=== PATIENT | female | born 1940 | race Caucasian/White ===

== ENCOUNTER 2018-06-03 22:03 | Emergency (ER) | payer OTHER ==
[2018-06-03 22:18] VITALS: BP 115/84; PULSE 68; TEMP 98.2; BMI 26.6
--- NOTE | 2018-06-04 01:26 | PDOC ---
History of Present Illness - General Chief Complaint: Injury Stated Complaint: FALL Time Seen by Provider: 06/03/18 23:23 History Source: Patient Exam Limitations: No Limitations - History of Present Illness Initial Comments: 06/04/18 01:20 Best Contact: PCP: Pmhx: Depression Pshx: Total abdominal hysterectomy, cervical and lumbar discectomy, left knee replacement Allergies:Amlodipine/Benazeoril FH:0 Social Hx: Cigarettes/0 Alcohol/ 0 Drugs/0 LMP:N/A 77-year-old female presents to the emergency department complaining of pain to the frontal scalp. Patient states she had 2 glasses of wine this evening with dinner and when she was walking out of the restaurant, she stepped in a pothole causing her to lose balance and fall forward. Patient denies LOC, dizziness, lightheadedness, facial pains, neck pain/stiffness, back pains, chest pain, shortness of breath, flank pains, abdominal pains, urinary symptoms, bladder or bowel dysfunction, extremity numbness or tingling sensation. Pt states she takes aspirin 81 mg daily Occurred: reports: just prior to arrival Past History - Past Medical History Allergies/Adverse Reactions: Allergies Allergy/AdvReac Type Severity Reaction Status Date / Time amlodipine [From Lotrel] Allergy Verified 06/03/18 22:18 benazepril [From Lotrel] Allergy Verified 06/03/18 22:18 COPD: No GI Disorders: Yes HTN: Yes Psychiatric Problems: Yes (DEPRESSION) - Surgical History Abdominal Surgery: Yes (HYSTERECTOMY) - Suicide/Smoking/Psychosocial Hx Smoking History: Never smoked Review of Systems - Review of Systems Able to Perform ROS?: Yes Comments:: 06/04/18 01:19 CONSTITUTIONAL: Absent: fever, chills, diaphoresis, generalized weakness, malaise, loss of appetite HEENT: Absent: rhinorrhea, nasal congestion, throat pain, throat swelling, difficulty swallowing, mouth swelling, ear pain, eye pain, visual Changes CARDIOVASCULAR: Absent: chest pain, loss of consciousness, palpitations, irregular heart rate, peripheral edema RESPIRATORY: Absent: cough, shortness of breath, dyspnea with exertion, orthopnea, wheezing, stridor, hemoptysis GASTROINTESTINAL: Absent: abdominal pain, abdominal distension, nausea, vomiting, diarrhea, constipation, melena, hematochezia GENITOURINARY: Absent: dysuria, frequency, urgency, hesitancy, hematuria, flank pain, genital pain MUSCULOSKELETAL: Absent: myalgia, arthralgia, joint swelling SKIN: Absent: rash, itching, pallor HEMATOLOGIC/IMMUNOLOGIC: Absent: easy bleeding, easy bruising, lymphadenopathy, frequent infections ENDOCRINE: Absent: unexplained weight gain, unexplained weight loss, heat intolerance, cold intolerance NEUROLOGIC: +Pain to frontal forehead/abrasion Absent: headache, focal weakness or paresthesias, dizziness, unsteady gait, seizure, mental status changes, bladder or bowel incontinence PSYCHIATRIC: Absent: anxiety, depression, suicidal or homicidal ideation, hallucinations. Is the patient limited Zambian proficient: No *Physical Exam - Vital Signs Last Vital Signs Temp Pulse Resp BP Pulse Ox 98.2 F 68 18 115/84 97 06/03/18 22:13 06/03/18 22:13 06/03/18 22:13 06/03/18 22:13 06/03/18 22:13 - Physical Exam Comments: 06/04/18 01:20 GENERAL: Well developed, well nourished. Awake and alert. No acute distress. HEENT: Normocephalic, atraumatic. PERRLA, EOMI. No conjunctival pallor. Sclera are non- icteric. Moist mucous membranes. Oropharynx is clear. NECK: Supple. Full ROM. No JVD. Carotid pulses 2+ and symmetric, without bruits. No thyromegaly. No lymphadenopathy. CARDIOVASCULAR: Regular rate and rhythm. No murmurs, rubs, or gallops. Distal pulses are 2+ and symmetric. PULMONARY: No evidence of respiratory distress. Lungs clear to auscultation bilaterally. No wheezing, rales or rhonchi. ABDOMINAL: Soft. Non-tender. Non-distended. No rebound or guarding. No organomegaly. Normoactive bowel sounds. MUSCULOSKELETAL Normal range of motion at all joints. No bony deformities or tenderness. No CVA tenderness. EXTREMITIES: No cyanosis. No clubbing. No edema. No calf tenderness. SKIN: Warm and dry. Normal capillary refill. No rashes. No jaundice. NEUROLOGICAL: +forehead swelling 2x2cm/ abrasion Alert, awake, appropriate. Cranial nerves 2-12 intact. No deficits to light touch and temperature in face, upper extremities and lower extremities. No motor deficits in the in face, upper extremities and lower extremities. Normoreflexic in the upper and lower extremities. Normal speech. Toes are down- going bilaterally. Gait is normal without ataxia. PSYCHIATRIC: Cooperative. Good eye contact. Appropriate mood and affect. ED Treatment Course - RADIOLOGY Radiology Studies Ordered: Category Date Time Status CERVICAL SPINE CT W/O CONTR [CT] Stat CT Scan 06/04/18 01:[address] WITHOUT CONTRAST [CT] Stat CT Scan 06/04/18 01:00 Taken Progress Note - Progress Note Progress Note: CT cervical spine without contrast: Status post fusion of C3-C6. Hardware appears appropriately position and intact. Diffuse central canal narrowing is noted. There is no fracture, subluxation, prevertebral soft tissue swelling or significant degenerative changes. The lung apices are clear. No fracture. CT head without contrast: Scalp edema without skull fracture or intracranial hemorrhage. 0140hrs: Patient advised to stay in the emergency department for the next 6 hours for observation and repeat CAT scan of the head without contrast at 6 AM which will be 8 hours after her fall. Patient adamantly refuses. Patient states she will follow with her PMD and return back to the ER if needed *DC/Admit/Observation/Transfer Diagnosis at time of Disposition: Closed head injury Qualifiers: Encounter type: initial encounter Qualified Code(s): S09.90XA - Unspecified injury of head, initial encounter - Discharge Dispostion Disposition: AGAINST MEDICAL ADVICE Condition at time of disposition: Stable Decision to Admit order: No - Referrals Referrals: Denia Harp [Primary Care Provider] - - Patient Instructions Printed Discharge Instructions: DI for Closed Head Injury Additional Instructions: Ice your forehead 10 minutes on alternating with 10 minutes off for the next 48 hours while awake Take Tylenol as needed for pain Follow-up with your PMD within 48 hours Return back to the ER for severe/persistent or worsening symptoms, dizziness or lightheadedness/headache You were advised to stay in the emergency department for reevaluation in 2 hours and a repeat CAT scan at 6 AM but you adamantly refused and insists on being discharged AGAINST MEDICAL ADVICE. Please follow-up with your physician or return back to the ER for any concerns - Post Discharge Activity
== END 2018-06-04 01:51 | disposition left against medical advice (07) ==
LOC: JER 22:03
DX: S09.90XA Unspecified injury of head, initial encounter (principal); W18.39XA Other fall on same level, initial encounter; Y93.89 Activity, other specified; Y92.511 Restaurant or cafe as the place of occurrence of the external cause; I10 Essential (primary) hypertension
CPT/HCPCS: 70450-TC; 72125-TC; 99281-25

== ENCOUNTER 2018-06-05 12:32 | Emergency (ER) | payer OTHER ==
[2018-06-05 12:42] VITALS: BP 142/82; PULSE 68; TEMP 98.4; BMI 12.0
--- NOTE | 2018-06-05 14:10 | PDOC ---
History of Present Illness - General Chief Complaint: Injury Stated Complaint: REVISIT,HEAD INJURY Time Seen by Provider: 06/05/18 13:55 History Source: Patient Exam Limitations: No Limitations - History of Present Illness Initial Comments: 06/05/18 15:26 She was seen here 2 days ago status post trip and fall with LOC. Was discharged after negative CAT scan for facial fractures or interpret cranial pathology. But states came back today because "I just I'll feel right". Patient denies headache although has chronic neuralgia. Pain with wraparound scalp pain that is seeing a pain management doctor for. Denies worsening neck pain although has chronic neck pain due to an old cervical fusion from an injury many many years ago. Denies fever, earache, sore throat pain. Denies any neurologic changes, numbness or tingling to hands or feet,, denies any visual changes. Occurred: reports: just prior to arrival Severity: reports: mild Pain Location: reports: none, face, head Loss of Consciousness: brief (seconds) (2 days ago) Associated Symptoms (Fall): headache Past History - Travel Traveled outside of the country in the last 30 days: No Close contact w/someone who was outside of country & ill: No - Past Medical History Allergies/Adverse Reactions: Allergies Allergy/AdvReac Type Severity Reaction Status Date / Time amlodipine [From Lotrel] Allergy Verified 06/03/18 22:18 benazepril [From Lotrel] Allergy Verified 06/03/18 22:18 COPD: No GI Disorders: Yes HTN: Yes Psychiatric Problems: Yes (DEPRESSION) - Surgical History Abdominal Surgery: Yes (HYSTERECTOMY) - Immunization History Immunization Up to Date: Yes - Suicide/Smoking/Psychosocial Hx Smoking History: Never smoked Information on smoking cessation initiated: No Hx Alcohol Use: No Drug/Substance Use Hx: No Review of Systems - Review of Systems Able to Perform ROS?: Yes Is the patient limited Turkmen proficient: Yes Constitutional: Yes: Symptoms Reported, See HPI, Malaise. No: Fever HEENTM: Yes: Symptoms Reported, See HPI, Eye Pain Respiratory: No: Symptoms reported Cardiac (ROS): No: Symptoms Reported Musculoskeletal: Yes: Symptoms Reported, See HPI Integumentary: Yes: Symptoms Reported, See HPI, Bruising Neurological: Yes: Symptoms reported All Other Systems: Reviewed and Negative *Physical Exam - Vital Signs Last Vital Signs Temp Pulse Resp BP Pulse Ox 98.4 F 68 18 142/82 98 06/05/18 12:38 06/05/18 12:38 06/05/18 12:38 06/05/18 12:38 06/05/18 12:38 - Physical Exam General Appearance: Yes: Nourished, Appropriately Dressed, Apparent Distress, Mild Distress HEENT: positive: Normal ENT Inspection. negative: JOSEFA, TMs Normal, Rhinorrhea Neck: positive: Supple, Lymphadenopathy (R), Lymphadenopathy (L). negative: Tender Respiratory/Chest: positive: Lungs Clear, Normal Breath Sounds Gastrointestinal/Abdominal: positive: Soft. negative: Tender Musculoskeletal: positive: Normal Inspection Extremity: positive: Normal Capillary Refill, Normal Inspection Integumentary: positive: Normal Color, Pale, Ecchymosis, Bruising (area stages of healing to face, no crepitus or step-offs, negative EOM, no evidence of cellulitis.) Neurologic: positive: grinder chipper II-XII NML intact, Fully Oriented ED Treatment Course - RADIOLOGY Radiology Studies Ordered: Category Date Time Status HEAD CT WITHOUT CONTRAST [CT] Stat CT Scan 06/05/18 14:05 Ordered *DC/Admit/Observation/Transfer Diagnosis at time of Disposition: Postconcussive syndrome - Discharge Dispostion Disposition: HOME Condition at time of disposition: Stable Decision to Admit order: No - Referrals Referrals: Denia Harp [Primary Care Provider] - - Patient Instructions Printed Discharge Instructions: DI for Postconcussion Syndrome Additional Instructions: Rest, avoid strenuous activity or exercise for the next 24-48 hours May use ice on contusions as needed. May use Tylenol or Motrin for pain relief Watch and seek evaluation for changes in behavior including crankiness, inconsolability, quietness/ sleepiness that is inappropriate, tiredness that is inappropriate, watch for worsening and changes of behavior. Seek immediate evaluation/return to emergency department for vomiting, mental status changes, pain that's out of proportion , bloody drainage from ears or nose. Followup with private physician as needed in one to 2 days for reevaluation - Post Discharge Activity
== END 2018-06-05 16:38 | disposition home or self-care (01) ==
LOC: JERFT 12:32
DX: F07.81 Postconcussional syndrome (principal)
CPT/HCPCS: 70450-TC; 99281-25